=== PATIENT | male | born 1930 | race Caucasian/White ===

== ENCOUNTER 2017-02-02 09:41 | Inpatient (IN) | payer MEDICARE, BC ==
[2017-02-02 10:00] LABS: Glucose,Whole Blood 110 mg/dL (75-99)
[2017-02-02] MEDS ORDERED: SODIUM CHLORIDE 0.9% 1,000 ML IV STA (10:02)
--- NOTE | 2017-02-02 10:05 | ED ---
General Adult HPI - General Chief complaint: Neuro Symptoms/Deficit Stated complaint: CVA Time Seen by Provider: 02/02/17 09:47 Source: patient, family, RN notes reviewed Mode of arrival: wheelchair Limitations: no limitations - History of Present Illness Initial comments: Patient is a pleasant 86-year-old male presenting to the emergency department with speech problems. Patient went to bed around 10 or 10:30 last night and was doing fine at that time. Patient awoke around 8 or 9 this morning isn't having confusion and speech problems since that time. Majority of history is taken from the . Symptoms do seem somewhat improved at this time. Patient has difficulty finding words as well as garbled speech. Patient states he does feel somewhat confused. Patient had no difficulty with walking. No weakness. No history of similar symptoms previously. - Related Data Home Medications Medication Instructions Recorded Confirmed Atorvastatin [Lipitor] 40 mg PO DAILY 12/26/13 02/02/17 Clopidogrel [Plavix] 75 mg PO DAILY 12/26/13 02/02/17 Furosemide [Lasix] 40 mg PO DAILY 12/26/13 02/02/17 Metoprolol Succinate [Toprol XL] 25 mg PO DAILY 12/26/13 02/02/17 Pantoprazole Sodium 40 mg PO DAILY 12/26/13 02/02/17 Acetaminophen/Diphenhydramine 1 tab PO HS 11/18/15 02/02/17 [Tylenol PM 500-25mg] Aspirin [Adult Low Dose Aspirin EC] 81 mg PO DAILY 11/18/15 02/02/17 Finasteride [Proscar] 5 mg PO DAILY 11/18/15 02/02/17 Glucosamine Sulfate 500 mg PO DAILY 11/18/15 02/02/17 Isosorbide Mononitrate [Isosorbide 30 mg PO DAILY 11/18/15 02/02/17 Mononitrate ER] Mirabegron [Myrbetriq] 50 mg PO DAILY 11/18/15 02/02/17 Bladder Rescue 1 tab PO DAILY 02/02/17 02/02/17 Calcium 1000 Plus Mag 1 tab PO DAILY 02/02/17 02/02/17 Colon Cleanse 1 tab PO DAILY 02/02/17 02/02/17 Fiberwell 1 tab PO DAILY 02/02/17 02/02/17 Hemp Oral Supplement 1 tab PO DAILY 02/02/17 02/02/17 Multivitamins, Thera [Multivitamin 1 tab PO DAILY 02/02/17 02/02/17 (formulary)] Naproxen Sodium [Aleve] 220 mg PO DAILY 02/02/17 02/02/17 Nitroglycerin Sl Tabs [Nitrostat] 0.4 mg SUBLINGUAL Q5M PRN 02/02/17 02/02/17 Allergies Allergy/AdvReac Type Severity Reaction Status Date / Time No Known Allergies Allergy Verified 02/02/17 10:27 Review of Systems ROS Statement: Those systems with pertinent positive or pertinent negative responses have been documented in the HPI. ROS Other: All systems not noted in ROS Statement are negative. Constitutional: Denies: fever Eyes: Denies: eye pain ENT: Denies: ear pain Respiratory: Denies: cough Cardiovascular: Denies: chest pain Endocrine: Denies: fatigue Gastrointestinal: Denies: abdominal pain Genitourinary: Denies: dysuria Musculoskeletal: Denies: back pain Skin: Denies: rash Neurological: Reports: confusion. Denies: headache, weakness, numbness, paresthesias, abnormal gait Past Medical History Past Medical History: Coronary Artery Disease (CAD), Cancer, Chest Pain / Angina , Heart Failure, GERD/Reflux, Hyperlipidemia, Hypertension, Myocardial Infarction ([place]), Pneumonia, Prostate Disorder Additional Past Medical History / Comment(s): hypercholesterol, PROSTATE CA- RADIATION [place], CONSTIPATION Last Myocardial Infarction Date:: 2008 History of Any Multi-Drug Resistant Organisms: None Reported Past Surgical History: Appendectomy, Coronary Bypass/CABG, Heart Catheterization With Stent Additional Past Surgical History / Comment(s): X5 STENT AND 3 CATHS Past Anesthesia/Blood Transfusion Reactions: No Reported Reaction Date of Last Stent Placement:: 2010 Past Psychological History: No Psychological Hx Reported Smoking Status: Never smoker Past Alcohol Use History: None Reported Past Drug Use History: None Reported General Exam Limitations: no limitations General appearance: alert, in no apparent distress Head exam: Present: atraumatic Eye exam: Present: normal appearance, PERRL ENT exam: Present: normal oropharynx Neck exam: Present: normal inspection Respiratory exam: Present: normal lung sounds bilaterally Cardiovascular Exam: Present: regular rate, normal rhythm GI/Abdominal exam: Present: soft. Absent: tenderness Extremities exam: Present: normal inspection Neurological exam: Present: alert, oriented X3, CN II-XII intact. Absent: motor sensory deficit Expanded Patient oriented to: Present: person, place, time Speech: Present: expressive aphasia, anomia Cranial nerves: EOM's Intact: Normal, Facial Sensation: Normal Cerebellar function: Finger to Nose: Normal Sensory exam: Upper Extremity Light Touch: Normal, Lower Extremity Light Touch: Normal Motor strength exam: RUE: 5, LUE: 5, RLE: 5, LLE: 5 Eye Response: (4) open spontaneously Motor Response: (6) obeys commands Verbal Response: (5) oriented Psychiatric exam: Present: normal affect, normal mood Skin exam: Present: normal color Course Vital Signs 02/02/17 02/02/17 09:49 10:04 Temperature 98.2 F Pulse Rate 63 64 Respiratory 17 18 Rate Blood Pressure 184/81 166/117 O2 Sat by Pulse 95 98 Oximetry - Reevaluation(s) Reevaluation #1: 02/02/17 10:04 Patient is not a candidate for TPA secondary to last known well 12 hours ago. EKG Findings - EKG Comments: EKG Findings:: Sinus rhythm at 67. First 3 AV block. CO 242. QRS 88. QT 392. QTC 44. Left axis. LVH criteria. No acute ST changes. Medical Decision Making - Medical Decision Making Patient reevaluated. Patient and family updated. Dr. Oropeza has been paged for admission for Dr. Coats. - Lab Data Result diagrams: 02/02/17 10:06 02/02/17 10:06 Lab Results 02/02/17 02/02/17 02/02/17 Range/Units 09:56 10:06 10:06 WBC 5.6 (3.8-10.6) k/uL RBC 4.18 L (4.30-5.90) m/uL Hgb 13.9 (13.0-17.5) gm/dL Hct 39.9 (39.0-53.0) % MCV 95.5 (80.0-100.0) fL MCH 33.3 (25.0-35.0) pg MCHC 34.9 (31.0-37.0) g/dL RDW 13.4 (11.5-15.5) % Plt Count 181 (150-450) k/uL Neutrophils % 68 % Lymphocytes % 24 % Monocytes % 5 % Eosinophils % 2 % Basophils % 0 % Neutrophils # 3.8 (1.3-7.7) k/uL Lymphocytes # 1.3 (1.0-4.8) k/uL Monocytes # 0.3 (0-1.0) k/uL Eosinophils # 0.1 (0-0.7) k/uL Basophils # 0.0 (0-0.2) k/uL PT (9.0-12.0) sec INR (<1.2) APTT (22.0-30.0) sec Sodium (137-145) mmol/L Potassium (3.5-5.1) mmol/L Chloride (98-107) mmol/L Carbon Dioxide (22-30) mmol/L Anion Gap mmol/L BUN (9-20) mg/dL Creatinine (0.66-1.25) mg/dL Est GFR (MDRD) Af Amer (>60 ml/min/1.73 sqM) Est GFR (MDRD) Non-Af (>60 ml/min/1.73 sqM) Glucose (74-99) mg/dL POC Glucose (mg/dL) 110 H (75-99) mg/dL POC Glu Setter Induction Heating Equipment ID Edda Tolliver Calcium (8.4-10.2) mg/dL Total Bilirubin (0.2-1.3) mg/dL AST (17-59) U/L ALT (21-72) U/L Alkaline Phosphatase (38-126) U/L Total Creatine Kinase 58 (55-170) U/L CK-MB (CK-2) 2.2 (0.0-2.4) ng/mL CK-MB (CK-2) Rel Index 3.8 Troponin I <0.012 (0.000-0.034) ng/mL Total Protein (6.3-8.2) g/dL Albumin (3.5-5.0) g/dL 02/02/17 02/02/17 Range/Units 10:06 10:06 WBC (3.8-10.6) k/uL RBC (4.30-5.90) m/uL Hgb (13.0-17.5) gm/dL Hct (39.0-53.0) % MCV (80.0-100.0) fL MCH (25.0-35.0) pg MCHC (31.0-37.0) g/dL RDW (11.5-15.5) % Plt Count (150-450) k/uL Neutrophils % % Lymphocytes % % Monocytes % % Eosinophils % % Basophils % % Neutrophils # (1.3-7.7) k/uL Lymphocytes # (1.0-4.8) k/uL Monocytes # (0-1.0) k/uL Eosinophils # (0-0.7) k/uL Basophils # (0-0.2) k/uL PT 10.2 (9.0-12.0) sec INR 1.0 (<1.2) APTT 21.9 L (22.0-30.0) sec Sodium 140 (137-145) mmol/L Potassium 4.4 (3.5-5.1) mmol/L Chloride 105 (98-107) mmol/L Carbon Dioxide 27 (22-30) mmol/L Anion Gap 8 mmol/L BUN 24 H (9-20) mg/dL Creatinine 0.73 (0.66-1.25) mg/dL Est GFR (MDRD) Af Amer >60 (>60 ml/min/1.73 sqM) Est GFR (MDRD) Non-Af >60 (>60 ml/min/1.73 sqM) Glucose 102 H (74-99) mg/dL POC Glucose (mg/dL) (75-99) mg/dL POC Glu Setter Induction Heating Equipment ID Calcium 9.7 (8.4-10.2) mg/dL Total Bilirubin 0.9 (0.2-1.3) mg/dL AST 26 (17-59) U/L ALT 28 (21-72) U/L Alkaline Phosphatase 70 (38-126) U/L Total Creatine Kinase (55-170) U/L CK-MB (CK-2) (0.0-2.4) ng/mL CK-MB (CK-2) Rel Index Troponin I (0.000-0.034) ng/mL Total Protein 6.6 (6.3-8.2) g/dL Albumin 4.0 (3.5-5.0) g/dL - Radiology Data Radiology results: report reviewed (Computed tomography scan of the brain shows no acute process. Atrophy and chronic white matter ischemic changes are present.), image reviewed (Two-view chest x-ray shows cardiomegaly.) Disposition Clinical Impression: Cerebrovascular accident Disposition: ADMITTED IP TO THIS HOSP Referrals: J Carlos Hooker MD [Primary Care Provider] - 1-2 days Decision Time: 11:17
[2017-02-02 10:29] LABS: Basophils % (A) 0 %; CH 33.3; Eosinophils # (A) 0.1 k/uL (0-0.7); Eosinophils % (A) 2 %; HCT 39.9 % (39.0-53.0); HDW 2.52; HGB 13.9 gm/dL (13.0-17.5); Luc # (Auto) 0.12; Luc % (Auto) 2; Lymphocytes # (A) 1.3 k/uL (1.0-4.8); Lymphocytes % (A) 24 %; MCH 33.3 pg (25.0-35.0); MCHC 34.9 g/dL (31.0-37.0); MCV 95.5 fL (80.0-100.0); Mean Platelet Volume 8.3; Monocytes # (A) 0.3 k/uL (0-1.0); Monocytes % (A) 5 %; Neutrophils # (A) 3.8 k/uL (1.3-7.7); Neutrophils % (A) 68 %; RBC 4.18 m/uL (4.30-5.90); RDW 13.4 % (11.5-15.5); WBC 5.6 k/uL (3.8-10.6); WBC (Perox) 5.59
--- NOTE | 2017-02-02 10:31 | CT ---
EXAMINATION TYPE: CT brain wo con DATE OF EXAM: 02/02/2017 COMPARISON: Previous study dated 12/26/2013. HISTORY: CVA, neuro deficits CT DLP: 1012.70 mGycm Automated exposure control for dose reduction was used. FINDINGS: There are generalized changes of sulcal prominence and ventriculomegaly, compatible with atrophic kaye nge. There is diffuse periventricular white matter lucency, compatible with chronic white matter isch emic change. There is no acute focal lesion, mass effect or midline shift identified. I do not see ev idence of intracranial blood. Visualized portions of the paranasal sinuses and mastoids are clear. IMPRESSION: 1. NO ACUTE INTRACRANIAL ABNORMALITY. 2. ATROPHIC CHANGE. 3. CHRONIC WHITE MATTER ISCHEMIC CHANGE.
[2017-02-02 10:36] LABS: ALT 28 U/L (21-72); AST 26 U/L (17-59); Alkaline Phosphatase 70 U/L (38-126); Anion Gap 8 mmol/L; Blood Urea Nitrogen 24 mg/dL (9-20); Calcium 9.7 mg/dL (8.4-10.2); Carbon Dioxide 27 mmol/L (22-30); Chloride 105 mmol/L (98-107); Glucose 102 mg/dL (74-99); Non-African American GFR(MDRD) >60 (>60 ml/min/1.73 sqM); Potassium 4.4 mmol/L (3.5-5.1); Sodium 140 mmol/L (137-145); Total Bilirubin 0.9 mg/dL (0.2-1.3); Total Protein 6.6 g/dL (6.3-8.2)
--- NOTE | 2017-02-02 10:38 | XR ---
EXAMINATION TYPE: XR chest 2V DATE OF EXAM: 02/02/2017 HISTORY: altered mental status. REFERENCE: Previous study dated 12/26/2013. FINDINGS: Surgical clips project over the left hemithorax. The heart is mildly enlarged. There is some scarring or atelectasis at the right lung base. Lungs oth erwise clear. Pleural spaces are clear.. IMPRESSION: CARDIOMEGALY.
[2017-02-02 10:45] LABS: Prothrombin Time 10.2 sec (9.0-12.0)
[2017-02-02 10:51] LABS: Partial Thromboplastin Time 21.9 sec (22.0-30.0)
[2017-02-02 10:56] LABS: Creatine Kinase 58 U/L (55-170)
[2017-02-02 11:09] LABS: Creatine Kinase MB 2.2 ng/mL (0.0-2.4); Troponin I <0.012 ng/mL (0.000-0.034)
[2017-02-02] MEDS ORDERED: ASPIRIN 325 MG TAB PO STA (11:17)
--- NOTE | 2017-02-02 13:27 | US ---
EXAMINATION TYPE: US carotid duplex BILAT DATE OF EXAM: 02/02/2017 COMPARISON: NONE CLINICAL HISTORY: Stenosis. EXAM MEASUREMENTS: RIGHT: Peak Systolic Velocity (PSV) cm/sec ----- Right CCA: 62.4 ----- Right ICA: 58.1 ----- Right ECA: 50.4 ICA/CCA ratio: 0.9 RIGHT: End Diastole cm/sec ----- Right CCA: 11.5 ----- Right ICA: 14.1 ----- Right ECA: 0.0 LEFT: Peak Systolic Velocity (PSV) cm/sec ----- Left CCA: 74.8 ----- Left ICA: 61.7 ----- Left ECA: 55.5 ICA/CCA ratio: 0.8 LEFT: End Diastole cm/sec ----- Left CCA: 10.1 ----- Left ICA: 11.9 ----- Left ECA: 5.8 VERTEBRALS (direction of flow): Right Vertebral: Antegrade Left Vertebral: Antegrade Mild plaque, no significant velocity elevations. IMPRESSION: I DO NOT SEE EVIDENCE OF A HEMODYNAMICALLY SIGNIFICANT STENOSIS IN EITHER CAROTID SYSTEM. Criteria for Assigning % of Stenosis / Diameter reduction (Estimation based on the indirect measurements of the internal carotid artery velocities (ICA PSV). 1. Normal (no stenosis)=ICA PSV < 125 cm/s: ratio < 2.0: ICA EDV<40 cm/s. 2. Less than 50% stenosis=ICA PSV < 125 cm/s: ratio < 2.0: ICA EDV<40 cm/s. 3. 50 to 69% stenosis=ICA PSV of 125 to 230 cm/s: ration 2.0 ? 4.0: ICA EDV 40-100 cm/s. 4. Greater than 70% stenosis to near occlusion= ICA PSV > 230 cm/s: ratio > 4.0: ICA EDV > 100 cm/s. 5. Near occlusion= ICA PSV velocities may be low or undetectable: variable ratio and ICA EDV. 6. Total occlusion=unable to detect flow.
--- NOTE | 2017-02-02 14:07 | ECHOF ---
Referral Reason:Thrombus MEASUREMENTS -------- HEIGHT: 165.1 cm WEIGHT: 77.1 kg BP: 166/117 RVIDd: 3.3 cm (< 3.3) IVSd: 1.0 cm (0.6 - 1.1) LVIDd: 4.2 cm (3.9 - 5.3) LVPWd: 1.0 cm (0.6 - 1.1) IVSs: 1.8 cm LVIDs: 2.9 cm LVPWs: 1.7 cm LAESV Index (A-L): 21.57 ml/m Ao Diam: 3.2 cm (2.0 - 3.7) AV Cusp: 1.7 cm (1.5 - 2.6) LA Diam: 4.1 cm (2.7 - 3.8) MV EXCURSION: 13.189 mm (> 18.000) MV EF SLOPE: 32 mm/s (70 - 150) EPSS: 1.3 cm MV E [place]: 0.79 m/s MV DecT: 243 ms MV A [place]: 0.69 m/s MV E/A Ratio: 1.16 AR PHT: 591 ms RAP: 5.00 mmHg RVSP: 19.91 mmHg FINDINGS -------- Resting bradycardia (HR<60bpm). This was a technically adequate study. Overall left ventricular systolic function is low-normal with, an EF between 50 - 55 %. Inferiorlateral Hypokinesis The right ventricle is normal in size and function. Normal LA size by volume 22+/-6 ml/m2. The right atrium is normal in size. Aortic valve is trileaflet and is mildly thickened. There is [id number] aortic regurgitation. The aortic pressure half-time by doppler is 591ms. There is no evidence of aortic stenosis. The mitral valve leaflets are mildly thickened. Mild mitral annular calcification present. There is trace to mild mitral regurgitation. Trace tricuspid regurgitation present. There is no evidence of pulmonary hypertension. The right ventricular systolic pressure, as measured by Doppler, is 19.91mmHg. The pulmonic valve was not well visualized. The aortic root size is normal. Normal inferior vena cava with normal inspiratory collapse consistent with estimated right atrial pressure of 5 mmHg. The pericardium is normal. There is no pericardial effusion. CONCLUSIONS -------- 1. Resting bradycardia (HR<60bpm). 2. Mild mitral annular calcification present. 3. There is trace to mild mitral regurgitation. 4. Trace tricuspid regurgitation present. 5. There is no evidence of pulmonary hypertension. 6. The right ventricular systolic pressure, as measured by Doppler, is 19.91mmHg. 7. The pulmonic valve was not well visualized. 8. The aortic root size is normal. 9. There is no pericardial effusion. 10. This was a technically adequate study. 11. Overall left ventricular systolic function is low-normal with, an EF between 50 - 55 %. 12. Inferiorlateral Hypokinesis 13. Normal LA size by volume 22+/-6 ml/m2. 14. Aortic valve is trileaflet and is mildly thickened. 15. There is [id number] aortic regurgitation. 16. The aortic pressure half-time by doppler is 591ms. 17. The mitral valve leaflets are mildly thickened. CORRECTIONAL FACILITY PSYCHIATRIST: Mario Alberto Boss RDCS
[2017-02-02] MEDS: SODIUM CHLORIDE 0.9% 1,000 ML IV SCH ×2 (17:31→23:49)
--- NOTE | 2017-02-02 20:50 | P.CNNES ---
History of Present Illness Consult date: 02/02/17 History of Present Illness: The patient is an 86-year-old right-handed white male who states that he woke up with difficulty speaking. His were words were slurred. His could not understand his speech. This lasted for about 2 hours. By the time he came to the hospital the symptoms resolved. He states he is feeling fine since that time he has been to the hospital. He denies any weakness dizziness headache or visual changes. He uses a cane to walk in his been using it for several years years due to his chronic health condition and arthritis he had a CT of the brain which showed no acute abnormality. He has been on baby aspirin and Plavix. Review of Systems Constitutional: Denies chills, Denies fever Eyes: denies blurred vision, denies pain Ears, nose, mouth and throat: Denies headache, Denies sore throat Cardiovascular: Denies chest pain, Denies shortness of breath Respiratory: Denies cough Gastrointestinal: Denies abdominal pain, Denies diarrhea, Denies nausea, Denies vomiting Musculoskeletal: Denies myalgias Integumentary: Denies pruritus, Denies rash Neurological: Denies numbness, Denies weakness Psychiatric: Denies anxiety, Denies depression Endocrine: Denies fatigue, Denies weight change Past Medical History Past Medical History: Coronary Artery Disease (CAD), Cancer, Chest Pain / Angina , Heart Failure, GERD/Reflux, Hyperlipidemia, Hypertension, Myocardial Infarction ([place]), Pneumonia, Prostate Disorder Additional Past Medical History / Comment(s): hypercholesterol, PROSTATE CA- RADIATION [place], CONSTIPATION. 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" Last Myocardial Infarction Date:: 2008 History of Any Multi-Drug Resistant Organisms: None Reported Past Surgical History: Appendectomy, Coronary Bypass/CABG, Heart Catheterization With Stent Additional Past Surgical History / Comment(s): X5 STENT AND 3 CATHS Past Anesthesia/Blood Transfusion Reactions: No Reported Reaction Date of Last Stent Placement:: 2010 Smoking Status: Never smoker Medications and Allergies Home Medications Medication Instructions Recorded Confirmed Type Atorvastatin [Lipitor] 40 mg PO DAILY 12/26/13 02/02/17 History Clopidogrel [Plavix] 75 mg PO DAILY 12/26/13 02/02/17 History Furosemide [Lasix] 40 mg PO DAILY 12/26/13 02/02/17 History Metoprolol Succinate [Toprol XL] 25 mg PO DAILY 12/26/13 02/02/17 History Pantoprazole Sodium 40 mg PO DAILY 12/26/13 02/02/17 History Acetaminophen/Diphenhydramine 1 tab PO HS 11/18/15 02/02/17 History [Tylenol PM 500-25mg] Aspirin [Adult Low Dose Aspirin EC] 81 mg PO DAILY 11/18/15 02/02/17 History Finasteride [Proscar] 5 mg PO DAILY 11/18/15 02/02/17 History Glucosamine Sulfate 500 mg PO DAILY 11/18/15 02/02/17 History Isosorbide Mononitrate [Isosorbide 30 mg PO DAILY 11/18/15 02/02/17 History Mononitrate ER] Mirabegron [Myrbetriq] 50 mg PO DAILY 11/18/15 02/02/17 History Bladder Rescue 1 tab PO DAILY 02/02/17 02/02/17 History Calcium 1000 Plus Mag 1 tab PO DAILY 02/02/17 02/02/17 History Colon Cleanse 1 tab PO DAILY 02/02/17 02/02/17 History Fiberwell 1 tab PO DAILY 02/02/17 02/02/17 History Hemp Oral Supplement 1 tab PO DAILY 02/02/17 02/02/17 History Multivitamins, Thera [Multivitamin 1 tab PO DAILY 02/02/17 02/02/17 History (formulary)] Naproxen Sodium [Aleve] 220 mg PO DAILY 02/02/17 02/02/17 History Nitroglycerin Sl Tabs [Nitrostat] 0.4 mg SUBLINGUAL Q5M PRN 02/02/17 02/02/17 History Allergies Allergy/AdvReac Type Severity Reaction Status Date / Time No Known Allergies Allergy Verified 02/02/17 10:27 Physical Examination - Vital Signs Vital Signs: Vital Signs Temp Pulse Pulse Resp BP BP Pulse Ox 02/02/17 16:17 97.6 F 64 18 170/80 98 02/02/17 15:14 96.5 F L 66 18 173/74 99 02/02/17 14:05 61 18 172/73 96 02/02/17 13:05 55 L 16 166/71 98 02/02/17 12:30 62 18 182/77 96 02/02/17 11:31 63 18 180/84 96 02/02/17 11:00 65 16 156/70 96 02/02/17 10:30 60 16 182/81 96 02/02/17 10:04 64 18 166/117 98 02/02/17 09:49 98.2 F 63 17 184/81 95 Intake and Output 02/02/17 02/02/17 02/02/17 06:59 14:59 22:59 Other: # Voids 2 Weight 77.111 kg 77.111 kg Patient Weight 02/03/17 06:59 Weight 77.111 kg - EENT EENT: PERRL, hearing intact, vision intact - Respiratory Respiratory: lungs clear - Cardiovascular Cardiovascular: regular rate, normal S1, normal S2 - Integumentary Integumentary: normal - Neurologic Mental status he was awake alert and oriented his speech was fluent there was no a aphasia or dysarthria Cranial nerve examination: PERRL, EOMI, VFF, V1/V2/V3 grossly intact, face symmetric, tongue midline Speech examination: intact Sensorimotor examination: intact Detailed motor examination: grossly full strength in all extremities - Psychiatric Psychiatric: mood/affect appropriate Results - Laboratory Findings CBC and BMP: 02/02/17 10:06 02/02/17 10:06 Abnormal Lab Findings: Abnormal Labs 02/02/17 02/02/17 02/02/17 09:56 10:06 10:06 RBC 4.18 L APTT BUN 24 H Glucose 102 H POC Glucose (mg/dL) 110 H 02/02/17 10:06 RBC APTT 21.9 L BUN Glucose POC Glucose (mg/dL) Assessment and Plan (1) TIA (transient ischemic attack) Status: Acute Plan: The patient is an 86-year-old man who presented to the hospital with speech disturbance. Been on Plavix and baby aspirin at home. His symptoms resolved after 2 hours. He has had no further neurologic events. His neurologic examination is unremarkable. He had a carotid ultrasound which showed no significant stenosis. He had an echocardiogram which showed a resting bradycardia The patient most likely had a TIA and would recommend increasing baby aspirin dose as tolerated. He can continue on Plavix as well.
[2017-02-02 23:57] VITALS: RESP 18
[2017-02-03 05:05] LABS: Cholesterol 98 mg/dL (<200); HDL Cholesterol 38 mg/dL (40-60); Triglycerides 101 mg/dL (<150)
[2017-02-03] MEDS: SODIUM CHLORIDE 0.9% 1,000 ML IV SCH (06:23)
[2017-02-03] MEDS ORDERED: ASPIRIN 325 MG TAB PO SCH (09:00)
[2017-02-03] MEDS ORDERED: Magnesium Replacement Protocol 1 EACH MISC MISCELLANE PRN (11:00)
[2017-02-03] MEDS ORDERED: Potassium Replacement Protocol 1 EACH MISC MISCELLANE PRN (11:00)
[2017-02-03] MEDS ORDERED: ISOSORBIDE MONONITRATE ER 30 MG TAB.ER.24H PO SCH (11:15)
[2017-02-03] MEDS ORDERED: CLOPIDOGREL 75 MG TAB PO SCH (11:15)
[2017-02-03] MEDS ORDERED: FINASTERIDE 5 MG TAB PO SCH (11:15)
[2017-02-03] MEDS ORDERED: METOPROLOL SUCCINATE (ER) 25 MG TAB.ER.24H PO SCH (11:15)
[2017-02-03] MEDS ORDERED: PANTOPRAZOLE 40 MG TABLET PO SCH (11:15)
--- NOTE | 2017-02-03 11:47 | P.HPIM ---
History of Present Illness H&P Date: 02/03/17 Chief Complaint: Slurred speech This is a 86-year-old gentleman with past medical history noted below significant for underlying coronary artery disease wit history of stent placement, essential hypertension, mixed hyperlipidemia, and chronic physical debility that usually uses a cane to ambulate at home for a few steps and presented to the emergency room with slurred speech. Patient was doing fairly well until the night before his presentation when he went to sleep and woke up in the morning with confusion and slurred speech. He was unable to say the words. His was at home and was concerned about him so she decided to bring him to the emergency room. Patient did not have any neurological deficits and was able to get up and walk to the car. In the emergency room, patient was evaluated and underwent a computed tomography scan of the brain showing chronic ischemic changes with no acute stroke. His symptoms resolved quickly after his presentation. Initial lab work was within normal range. Patient was admitted to the hospital for telemetry monitoring and to rule out underlying stroke. He was seen and evaluated by neurology and underwent a carotid Doppler and echocardiogram of the heart. Carotid Doppler showed no hemodynamically significant stenosis. Echocardiogram showed preserved EF with no significant valvular abnormalities and no intracardiac source for any stroke. Patient symptoms were attributed to a possible TIA. Neurology recommended increasing his aspirin dose to 325 mg daily. Continue Plavix daily as part of his home regimen as well. Patient was tearful today when I saw him and told me that he would like to go home and does not want to be in the hospital. He is not interested in physical therapy or speech pathology evaluation. His is at bedside. She said that she is willing to take care of him at home. He will be discharged home in a stable condition. He will follow-up with his primary care physician as scheduled on Thursday. Review of Systems Review of system: 14 points review of systems were obtained and were negative except to what were mentioned in the HPI. Past Medical History Past Medical History: Coronary Artery Disease (CAD), Cancer, Chest Pain / Angina , Heart Failure, GERD/Reflux, Hyperlipidemia, Hypertension, Myocardial Infarction ([place]), Pneumonia, Prostate Disorder Additional Past Medical History / Comment(s): hypercholesterol, PROSTATE CA- RADIATION TX, CONSTIPATION. 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" Last Myocardial Infarction Date:: 2008 History of Any Multi-Drug Resistant Organisms: None Reported Past Surgical History: Appendectomy, Coronary Bypass/CABG, Heart Catheterization With Stent Additional Past Surgical History / Comment(s): X5 STENT AND 3 CATHS Past Anesthesia/Blood Transfusion Reactions: No Reported Reaction Date of Last Stent Placement:: 2010 Smoking Status: Never smoker - Past Family History Father Family Medical History: Myocardial Infarction ([place]) Mother Family Medical History: No Reported History Additional Family Medical History / Comment(s): FROM OLD AGE AT 93 Medications and Allergies Home Medications Medication Instructions Recorded Confirmed Type Atorvastatin [Lipitor] 40 mg PO DAILY 12/26/13 02/02/17 History Clopidogrel [Plavix] 75 mg PO DAILY 12/26/13 02/02/17 History Furosemide [Lasix] 40 mg PO DAILY 12/26/13 02/02/17 History Metoprolol Succinate [Toprol XL] 25 mg PO DAILY 12/26/13 02/02/17 History Pantoprazole Sodium 40 mg PO DAILY 12/26/13 02/02/17 History Acetaminophen/Diphenhydramine 1 tab PO HS 11/18/15 02/02/17 History [Tylenol PM 500-25mg] Aspirin [Adult Low Dose Aspirin EC] 81 mg PO DAILY 11/18/15 02/02/17 History Finasteride [Proscar] 5 mg PO DAILY 11/18/15 02/02/17 History Glucosamine Sulfate 500 mg PO DAILY 11/18/15 02/02/17 History Isosorbide Mononitrate [Isosorbide 30 mg PO DAILY 11/18/15 02/02/17 History Mononitrate ER] Mirabegron [Myrbetriq] 50 mg PO DAILY 11/18/15 02/02/17 History Bladder Rescue 1 tab PO DAILY 02/02/17 02/02/17 History Calcium 1000 Plus Mag 1 tab PO DAILY 02/02/17 02/02/17 History Colon Cleanse 1 tab PO DAILY 02/02/17 02/02/17 History Fiberwell 1 tab PO DAILY 02/02/17 02/02/17 History Hemp Oral Supplement 1 tab PO DAILY 02/02/17 02/02/17 History Multivitamins, Thera [Multivitamin 1 tab PO DAILY 02/02/17 02/02/17 History (formulary)] Naproxen Sodium [Aleve] 220 mg PO DAILY 02/02/17 02/02/17 History Nitroglycerin Sl Tabs [Nitrostat] 0.4 mg SUBLINGUAL Q5M PRN 02/02/17 02/02/17 History Allergies Allergy/AdvReac Type Severity Reaction Status Date / Time No Known Allergies Allergy Verified 02/02/17 10:27 Physical Exam Vitals: Vital Signs Temp Pulse Pulse Resp BP BP Pulse Ox 02/03/17 08:00 97.1 F L 86 18 128/74 93 L 02/03/17 03:22 97.9 F 64 18 156/76 96 02/03/17 03:17 67 02/02/17 23:58 67 02/02/17 23:56 67 18 144/78 97 02/02/17 20:00 97.5 F L 65 16 157/75 98 02/02/17 16:17 97.6 F 64 18 170/80 98 02/02/17 15:14 96.5 F L 66 18 173/74 99 02/02/17 14:05 61 18 172/73 96 02/02/17 13:05 55 L 16 166/71 98 02/02/17 12:30 62 18 182/77 96 Intake and Output 02/02/17 02/03/17 02/03/17 22:59 06:59 14:59 Intake Total 120 Balance 120 Intake: Oral 120 Other: # Voids 2 2 Weight 77.111 kg 75.8 kg General: The patient is awake and alert, in no distress Eye: there is normal conjunctiva bilaterally. Neck: The neck is supple, there is no JVD. Cardiovascular: Normal S1-S2, no S3-S4, no murmurs. Respiratory: Lungs clear to auscultation bilaterally Gastrointestinal: Abdomen is soft, nontender Musculoskeletal: There is +1 pedal edema. Neurological:. Speech is normal. Skin: Skin is warm and dry Results CBC & Chem 7: 02/02/17 10:06 02/02/17 10:06 Labs: Abnormal Lab Results - Last 24 Hours (Table) 02/02/17 Range/Units 10:06 HDL Cholesterol 38 L (40-60) mg/dL Assessment and Plan Plan: 1. Suspected TIA with no evidence of acute stroke on computed tomography scan of the brain. Chronic atrophic and ischemic changes noted. Patient was seen and evaluated by neurology. Recommended to increase aspirin dose to 325 mg daily. Continue Plavix 75 mg daily. 2. Essential hypertension: Blood pressure well-controlled 3. Coronary artery disease with a history of prior stent placement 4. Mixed hyperlipidemia, LDL at goal. Continue Lipitor 40 once daily 5. Chronic physical debility, patient is not interested in physical therapy. He ambulates few steps using a cane. Patient wanted to be discharged home today. He would be discharged per his wishes in stable condition. He denies physical therapy evaluation.
--- NOTE | 2017-02-03 11:50 | P.DS ---
Providers Date of admission: 02/02/17 11:17 Expected date of discharge: 02/03/17 Attending physician: Benitez Reddy Consults: 02/02/17 11:18 Consult Physician Urgent Consulting Provider: Felipa Garcia Consult Reason/Comments: cva Do you want consulting provider notified?: Yes Primary care physician: J Carlos Hooker [facility] Course: 1. Suspected TIA with no evidence of acute stroke on computed tomography scan of the brain. Chronic atrophic and ischemic changes noted. Patient was seen and evaluated by neurology. Recommended to increase aspirin dose to 325 mg daily. Continue Plavix 75 mg daily. 2. Essential hypertension: Blood pressure well-controlled 3. Coronary artery disease with a history of prior stent placement 4. Mixed hyperlipidemia, LDL at goal. Continue Lipitor 40 once daily 5. Chronic physical debility, patient is not interested in physical therapy. He ambulates few steps using a cane. Patient wanted to be discharged home today. He would be discharged per his wishes in stable condition. He denies physical therapy evaluation. Plan - Discharge Summary New Discharge Prescriptions: New Aspirin 325 mg PO DAILY #30 tab Continue Atorvastatin [Lipitor] 40 mg PO DAILY Pantoprazole Sodium 40 mg PO DAILY Furosemide [Lasix] 40 mg PO DAILY Clopidogrel [Plavix] 75 mg PO DAILY Metoprolol Succinate [Toprol XL] 25 mg PO DAILY Acetaminophen/Diphenhydramine [Tylenol PM 500-25mg] 1 tab PO HS Mirabegron [Myrbetriq] 50 mg PO DAILY Isosorbide Mononitrate [Isosorbide Mononitrate ER] 30 mg PO DAILY Glucosamine Sulfate 500 mg PO DAILY Finasteride [Proscar] 5 mg PO DAILY Nitroglycerin Sl Tabs [Nitrostat] 0.4 mg SUBLINGUAL Q5M PRN PRN Reason: Chest Pain Naproxen Sodium [Aleve] 220 mg PO DAILY Multivitamins, Thera [Multivitamin (formulary)] 1 tab PO DAILY Fiberwell 1 tab PO DAILY Hemp Oral Supplement 1 tab PO DAILY Colon Cleanse 1 tab PO DAILY Calcium 1000 Plus Mag 1 tab PO DAILY Bladder Rescue 1 tab PO DAILY Discontinued Aspirin [Adult Low Dose Aspirin EC] 81 mg PO DAILY Discharge Medication List Atorvastatin [Lipitor] 40 mg PO DAILY 12/26/13 [History] Clopidogrel [Plavix] 75 mg PO DAILY 06/16/14 [History] Furosemide [Lasix] 40 mg PO DAILY 12/26/13 [History] Metoprolol Succinate [Toprol XL] 25 mg PO DAILY 12/26/13 [History] Pantoprazole Sodium 40 mg PO DAILY 12/26/13 [History] Acetaminophen/Diphenhydramine [Tylenol PM 500-25mg] 1 tab PO HS 11/18/15 [ History] Finasteride [Proscar] 5 mg PO DAILY 11/18/15 [History] Glucosamine Sulfate 500 mg PO DAILY 11/18/15 [History] Isosorbide Mononitrate [Isosorbide Mononitrate ER] 30 mg PO DAILY 11/18/15 [ History] Mirabegron [Myrbetriq] 50 mg PO DAILY 11/18/15 [History] Bladder Rescue 1 tab PO DAILY 02/02/17 [History] Calcium 1000 Plus Mag 1 tab PO DAILY 02/02/17 [History] Colon Cleanse 1 tab PO DAILY 02/02/17 [History] Fiberwell 1 tab PO DAILY 02/02/17 [History] Hemp Oral Supplement 1 tab PO DAILY 02/02/17 [History] Multivitamins, Thera [Multivitamin (formulary)] 1 tab PO DAILY 02/02/17 [History ] Naproxen Sodium [Aleve] 220 mg PO DAILY 02/02/17 [History] Nitroglycerin Sl Tabs [Nitrostat] 0.4 mg SUBLINGUAL Q5M PRN 02/02/17 [History] Aspirin 325 mg PO DAILY #30 tab 02/03/17 [Rx] Follow up Appointment(s)/Referral(s): J Carlos Hooker MD [Primary Care Provider] - 1-2 days Discharge Disposition: HOME SELF-CARE
[2017-02-03 13:24] VITALS: BP 163/74; PULSE 67; TEMP 98.2
[2017-02-03 13:33] VITALS: BMI 27.8
[2017-02-03] MEDS ORDERED: HEPARIN SODIUM,PORCINE 5,000 UNIT/ML 1 ML VIAL SQ SCH (21:00)
[2017-02-04] MEDS ORDERED: ATORVASTATIN 40 MG TAB PO SCH (09:00)
[2017-02-04] MEDS ORDERED: OXYBUTYNIN 10 MG TAB.ER.24 PO SCH (09:00)
[2017-02-04] MEDS ORDERED: FUROSEMIDE 40 MG TAB PO SCH (09:00)
== END 2017-02-03 15:51 | disposition home or self-care (01) | DRG 69 ==
LOC: EC 09:41 → 6SEL 11:17
PROVIDERS: ADMIT Internal Medicine; ATTEND Internal Medicine
DX: G45.9 Transient cerebral ischemic attack, unspecified (principal); I50.9 Heart failure, unspecified; I11.0 Hypertensive heart disease with heart failure; Z95.1 Presence of aortocoronary bypass graft; E78.2 Mixed hyperlipidemia; I25.10 Atherosclerotic heart disease of native coronary artery without angina pectoris; I25.2 Old myocardial infarction; K21.9 Gastro-esophageal reflux disease without esophagitis; K59.00 Constipation, unspecified; M19.91 Primary osteoarthritis, unspecified site; Z79.82 Long term (current) use of aspirin; Z79.1 Long term (current) use of non-steroidal anti-inflammatories (NSAID); Z79.02 Long term (current) use of antithrombotics/antiplatelets; Z79.899 Other long term (current) drug therapy; Z92.3 Personal history of irradiation; Z85.46 Personal history of malignant neoplasm of prostate
CPT/HCPCS: 36415; 70450; 71020; 80053; 80061; 82550; 82553; 84484; 85025; 85610; 85730; 93005; 93306; 93880; 96360; 96361; 99285